=== PATIENT | female | born 1990 | race Caucasian/White ===

== ENCOUNTER 2024-01-03 10:09 | Day surgery (SDC) | payer BC ==
[2023-12-29 11:02] VITALS: BMI 49.0
[2024-01-03] MEDS ORDERED: PROPOFOL 40 ML ONE (12:54)
[2024-01-03] MEDS ORDERED: Lidocaine 2% MPF 10 ML AMP (For Epidural Use) ONE (12:54)
== END 2024-01-03 14:05 | disposition home or self-care (01) ==
LOC: CSHSDC 10:09
PROVIDERS: ATTEND Surgery
PROC: 0DB68ZX Excision of Stomach, Via Natural or Artificial Opening Endoscopic, Diagnostic (ICD-10-PCS; principal; 2024-01-03)
DX: K21.9 Gastro-esophageal reflux disease without esophagitis (principal); K31.89 Other diseases of stomach and duodenum; K44.9 Diaphragmatic hernia without obstruction or gangrene; K29.50 Unspecified chronic gastritis without bleeding; E66.01 Morbid (severe) obesity due to excess calories; F41.9 Anxiety disorder, unspecified; E55.9 Vitamin D deficiency, unspecified; F33.9 Major depressive disorder, recurrent, unspecified; G47.00 Insomnia, unspecified; R73.09 Other abnormal glucose; E78.5 Hyperlipidemia, unspecified; R00.0 Tachycardia, unspecified; N92.0 Excessive and frequent menstruation with regular cycle; R03.0 Elevated blood-pressure reading, without diagnosis of hypertension; Z68.42 Body mass index [BMI] 45.0-49.9, adult; Z79.899 Other long term (current) drug therapy; Z91.041 Radiographic dye allergy status; Z88.8 Allergy status to other drugs, medicaments and biological substances
CPT/HCPCS: 88305; J2704